=== PATIENT | male | born 1960 | race Caucasian/White ===

== ENCOUNTER 2016-10-17 14:37 | Emergency (ER) | payer OTHER ==
[~2016-10-17] VITALS: Ht 175.3 cm; Wt 77.8 kg
[~2016-10-17 14:37] MED LIST: DOXY100T OR; PRED20 PO; VENTAER INH; Z.0.NO CURRENT MEDS
[2016-10-17 14:46] VITALS: BP 147/95; PULSE 70; RESP 16; TEMP 98.3; O2SAT 97
[2016-10-17] MEDS ORDERED: IBUP400T20 PO (15:05)
[2016-10-17] MEDS ORDERED: SODIUM CHLOR 0.9% 1000 ML INJ 1,000 ML IV SCH (15:24)
[2016-10-17] MEDS ORDERED: MORPHINE SULFATE 4 MG/ML INJ IV PUSH ONE (15:30)
[2016-10-17] MEDS ORDERED: ONDANSETRON HCL 4 MG/2 ML VIAL IVP ONE (15:30)
[2016-10-17] MEDS ORDERED: SODIUM CHLORIDE 0.9% FLUSH 5 ML FLUSH IVF PRN (15:30)
--- NOTE | 2016-10-17 15:36 | PD ---
HPI Chief Complaint: Flank/Kidney Pain Time Seen by Provider: 14:54 Travel History International Travel<30 days: No Contact w/Intl Traveler<30days: No Traveled to known affect area: No History of Present Illness HPI So 56 year-old man who presents to the emergency department complaining of right sided thoracoabdominal pain radiating up into the chest and back into the flank ongoing for the past 5 days. This is associated with several weeks to a couple months worth of long-standing symptoms including foul-smelling urine for couple months, several episodes of blood in his semen a couple weeks ago, decreased strength of urinary stream. He also some occasional burning with urination. He also has had some diarrhea over the past week or so since been dark in color. He's also had 3 months of cough and congestion symptoms. Pains been going on for the past week or so, fairly constant, not affected by eating. His appetite been generally strong. He's had fevers and chills along with it. Today at work she had worsening of the pain, and an episode of lightheadedness and dizziness when he stumbled and something which pushing the coming in the emergency department today. He has not seen a doctor for this symptoms previously. He otherwise had been feeling generally well. History Past Medical History Medical History: Denies Significant Hx Tetanus Vaccination: < 5 Years Influenza Vaccination: No Past Surgical History Surgical History: No Previous Surgery Social History Alcohol Use: Yes (12 BEERS/WEEK) Tobacco Use: Yes (08/19 PPD) Allergies-Medications (Allergen,Severity, Reaction): Coded Allergies: Amoxil (Verified Allergy, Severe, UNKNOWN, 10/17/16) Augmentin (Verified Allergy, Severe, UNKNOWN, 10/17/16) Penicillin (Verified Allergy, Intermediate, GI UPSET, 10/17/16) Aspirin (Verified Allergy, Mild, 10/17/16) Common Ragweed (Verified Allergy, Mild, 10/17/16) Sulfa (Verified Adverse Reaction, Severe, N/V, 10/17/16) Uncoded Allergies: NICOTINE PATCH (Adverse Reaction, Severe, CHEST PAIN, PERIPHERAL NUMBNESS, PER PT, 10/17/16) Reported Meds & Prescriptions Reported Meds & Active Scripts Active Reported Ibuprofen 400 Mg Tab 400 Mg PO Q8H PRN Review of Systems Except as stated in HPI: all other systems reviewed are Neg Physical Exam Narrative GENERAL: 56 year-old man, appears uncomfortable, clutching his right abdomen, no acute distress. SKIN: Warm and dry. NECK: Trachea midline. No JVD. CARDIOVASCULAR: Regular rate and rhythm. No murmur appreciated. RESPIRATORY: No accessory muscle use. Clear to auscultation. Breath sounds equal bilaterally. GASTROINTESTINAL: Normal contour and appearance. Moderate right costal margin tenderness and allodynia, there is also some right upper quadrant tenderness. Negative Palmer's. No voluntary guarding. Abdomen otherwise unremarkable. No CVA tenderness to percussion. MUSCULOSKELETAL: No obvious deformities. No clubbing. No cyanosis. No edema. NEUROLOGICAL: Awake and alert. No obvious cranial nerve deficits. Motor grossly within normal limits. Normal speech. PSYCHIATRIC: Appropriate mood and affect; insight and judgment normal. Data Data Last Documented VS Vital Signs Date Time Temp Pulse Resp B/P Pulse Ox O2 Delivery O2 Flow Rate FiO2 10/17/16 16:08 72 16 149/81 98 Room Air 10/17/16 14:46 98.3 Orders Complete Blood Count With Diff (10/17/16 15:24) Comprehensive Metabolic Panel (10/17/16 15:24) Lipase (10/17/16 15:24) Urinalysis - C+S If Indicated (10/17/16 15:24) Iv Access Insert/Monitor (10/17/16 15:24) Ecg Monitoring (10/17/16 15:24) Oximetry (10/17/16 15:24) Morphine Inj (Morphine Inj) (10/17/16 15:30) Ondansetron Inj (Zofran Inj) (10/17/16 15:30) Sodium Chlor 0.9% 1000 Ml Inj (Ns 1000 M (10/17/16 15:24) Sodium Chloride 0.9% Flush (Ns Flush) (10/17/16 15:30) Chest, Single Ap (10/17/16 15:24) Ed Poc Ultrasound (10/17/16 15:24) Ct Abd/Pel W Iv Contrast(Rout) (10/17/16 ) Us Abdomen Gallbladder (10/17/16 ) Iohexol 350 Inj (Omnipaque 350 Inj) (10/17/16 16:49) Labs Laboratory Tests Test 10/17/16 15:35 White Blood Count 4.3 TH/MM3 Red Blood Count 4.39 MIL/MM3 Hemoglobin 13.9 GM/DL Hematocrit 40.5 % Mean Corpuscular Volume 92.3 FL Mean Corpuscular Hemoglobin 31.6 PG Mean Corpuscular Hemoglobin 34.2 % Concent Red Cell Distribution Width 12.8 % Platelet Count 203 TH/MM3 Mean Platelet Volume 8.1 FL Neutrophils (%) (Auto) 59.6 % Lymphocytes (%) (Auto) 30.9 % Monocytes (%) (Auto) 6.0 % Eosinophils (%) (Auto) 2.7 % Basophils (%) (Auto) 0.8 % Neutrophils # (Auto) 2.6 TH/MM3 Lymphocytes # (Auto) 1.3 TH/MM3 Monocytes # (Auto) 0.3 TH/MM3 Eosinophils # (Auto) 0.1 TH/MM3 Basophils # (Auto) 0.0 TH/MM3 CBC Comment DIFF FINAL Differential Comment Urine Color YELLOW Urine Turbidity CLEAR Urine pH 6.0 Urine Specific [place] 1.024 Urine Protein NEG mg/dL Urine Glucose (UA) NEG mg/dL Urine Ketones NEG mg/dL Urine Occult Blood NEG Urine Nitrite NEG Urine Bilirubin NEG Urine Leukocyte Esterase NEG Urine RBC 0-3 /hpf Urine WBC 0-2 /hpf Urine Squamous Epithelial 0-5 /hpf Cells Microscopic Urinalysis Comment CULT NOT INDICATED Sodium Level 142 MEQ/L Potassium Level 3.6 MEQ/L Chloride Level 108 MEQ/L Carbon Dioxide Level 27.4 MEQ/L Anion Gap 7 MEQ/L Blood Urea Nitrogen 14 MG/DL Creatinine 0.82 MG/DL Estimat Glomerular Filtration 97 ML/MIN Rate Random Glucose 107 MG/DL Calcium Level 8.3 MG/DL Total Bilirubin 0.6 MG/DL Aspartate Amino Transf 19 U/L (AST/SGOT) Alanine Aminotransferase 30 U/L (ALT/SGPT) Alkaline Phosphatase 72 U/L Total Protein 7.1 GM/DL Albumin 3.8 GM/DL Lipase 560 U/L [facility] Medical Decision Making Medical Screen Exam Complete: Yes Emergency Medical Condition: Yes Interpretation(s) LABS: CBC unremarkable CMP is unremarkable Lipase 560 UA unremarkable Chest x-ray: Negative. CT abdomen and pelvis: Normal examination other than degenerative this disease lower lumbar sacral junction within the SI joints. Right upper quadrant ultrasound: Negative Differential Diagnosis Hepatobiliary disease, shingles, mass, malignancy, renal lithiasis, pyelonephritis, other Narrative Course Medical decision making INITIAL: 56 year-old man with right costal margin pain for a week, multiple associated symptoms, urinary symptoms for several months, and diarrhea for a week or so, some fevers and chills. Possibly urinary symptoms like how and nephritis or renal lithiasis. Possible underlying malignancy. No weight loss. No definite night sweats but he has had these fevers chills. We'll check point of care ultrasound the gallbladder, CT for renal stone, chest x-ray, labs , urinalysis, reassess. FINAL: 56 year-old man, multiple complaints, no clear etiology. We'll need outpatient follow-up. No evidence of emergent disease. Recommend supportive treatment. Diagnosis Primary Impression: Right flank pain Additional Instructions: Follow-up with your primary doctor at the first available appointment. Return to the emergency department for any new or worsening symptoms. Take tramadol as prescribed as needed for pain. Med/Other Pt SpecificInfo: Prescription(s) given Scripts Tramadol 50 Mg Tab50 Mg PO Q8H PRN (PAIN) #14 TAB Ref 0 Prov:Rm Cisneros MD 10/17/16 Disposition: 01 DISCHARGE HOME Condition: Stable Rm Cisneros MD Oct 17, 2016 15:36
[2016-10-17 15:51] LABS: AUTOMATED NEUTROPHIL # 2.6 TH/MM3 (1.8-7.7); BASOPHIL % 0.8 % (0.0-2.0); EOSINOPHIL # 0.1 TH/MM3 (0-0.4); EOSINOPHIL % 2.7 % (0.0-4.0); HEMATOCRIT 40.5 % (39.0-51.0); HEMO FLAGS DIFF FINAL; LYMPH % 30.9 % (9.0-44.0); LYMPHOCYTE # 1.3 TH/MM3 (1.0-4.8); MEAN CELL VOLUME 92.3 FL (80.0-100.0); MEAN CORPUSCULAR HEMOGLOBIN 31.6 PG (27.0-34.0); MEAN CORPUSCULAR HGB CONC 34.2 % (32.0-36.0); NEUT % 59.6 % (16.0-70.0); PLATELET COUNT 203 TH/MM3 (150-450); RED BLOOD COUNT 4.39 MIL/MM3 (4.50-5.90); RED CELL DISTRIBUTION WIDTH 12.8 % (11.6-17.2); WHITE BLOOD COUNT 4.3 TH/MM3 (4.0-11.0)
[2016-10-17 15:59] LABS: CHLORIDE 108 MEQ/L (98-107); POTASSIUM 3.6 MEQ/L (3.5-5.1); SODIUM (NA) 142 MEQ/L (136-145)
[2016-10-17 16:03] LABS: ANION GAP 7 MEQ/L (5-15); BICARBONATE 27.4 MEQ/L (21.0-32.0); BLOOD UREA NITROGEN 14 MG/DL (7-18)
[2016-10-17 16:06] LABS: ALT (GPT) 30 U/L (12-78); AST (GOT) 19 U/L (15-37); GLOMERULAR FILTRATION RATE 97 ML/MIN (>89)
[2016-10-17 16:07] LABS: TOTAL BILIRUBIN ADULT 0.6 MG/DL (0.2-1.0)
[2016-10-17 16:08] VITALS: BP 149/81; PULSE 72; RESP 16; O2SAT 98
[2016-10-17 16:08] LABS: BLOOD, URINE NEG (NEG); GLUCOSE,URINE NEG (NEG); KETONE, URINE NEG (NEG); NITRITE,URINE NEG (NEG)
[2016-10-17 16:10] LABS: ALKALINE PHOSPHATASE 72 U/L (45-117)
[2016-10-17 16:29] LABS: URINE COLOR YELLOW (YELLW/STRAW)
[2016-10-17 16:33] LABS: COMMENT (UR) CULT NOT INDICATED; CULTURE IF INDICATED CULT NOT INDICATED; RBC, URINE 0-3 /hpf (0-3); SQUAMOUS EPITHELIAL CELL URINE 0-5 /hpf (0-5); WBC, URINE 0-2 /hpf (0-5)
--- NOTE | 2016-10-17 16:46 | RADHPO ---
EXAM DATE/TIME: 10/17/2016 16:17 [facility] COMPARISON: CHEST SINGLE AP, November 22, 2011, 14:17. INDICATIONS : Chest pains. MEDICAL HISTORY : None. SURGICAL HISTORY : None. ENCOUNTER: Initial ACUITY: 2 weeks PAIN SCORE: 9/10 LOCATION: Right lower quadrant FINDINGS: A single view of the chest demonstrates the lungs to be symmetrically aerated without evidence of mas s, infiltrate or effusion. The cardiomediastinal contours are unremarkable. Osseous structures are intact. CONCLUSION: Normal examination. Rm Valadez MD on October 17, 2016 at 16:44 Board Certified Radiologist. This report was verified electronically.
[2016-10-17] MEDS ORDERED: IOHEXOL 350 MG/ML 10 ML VIAL (for RAD DIAG) IV ONE (16:49)
--- NOTE | 2016-10-17 16:55 | RADHPO ---
EXAM DATE/TIME: 10/17/2016 16:34 [facility] COMPARISON: No previous studies available for comparison. INDICATIONS : Right abdominal pain. IV CONTRAST: 100 cc Omnipaque 350 (iohexol) IV ORAL CONTRAST: No oral contrast ingested. RADIATION DOSE: 11.86 CTDIvol (mGy) MEDICAL HISTORY : None SURGICAL HISTORY : None. ENCOUNTER: Initial ACUITY: 4 - 6 days PAIN SCALE: 7/10 LOCATION: Right Abdomen. TECHNIQUE: Volumetric scanning of the abdomen and pelvis was performed. Using automated exposure control and ad justment of the mA and/or kV according to patient size, radiation dose was kept as low as reasonably achievable to obtain optimal diagnostic quality images. FINDINGS: LOWER LUNGS: The visualized lower lungs are clear. LIVER: Homogeneous density without lesion. There is no dilation of the biliary tree. No calcified gallston es. SPLEEN: Normal size without lesion. PANCREAS: Within normal limits. KIDNEYS: Normal in size and shape. There is no mass, stone or hydronephrosis. ADRENAL GLANDS: Within normal limits. VASCULAR: There is no aortic aneurysm. BOWEL/MESENTERY: The stomach, small bowel, and colon demonstrate no acute abnormality. There is no free intraperitone al air or fluid. ABDOMINAL WALL: Within normal limits. RETROPERITONEUM: There is no lymphadenopathy. BLADDER: No wall thickening or mass. REPRODUCTIVE: Within normal limits. INGUINAL: There is no lymphadenopathy or hernia. MUSCULOSKELETAL: Areas of sclerosis around the sacroiliac joints bilaterally. Marked discogenic sclerosis at the L5-S1 level with marked displaced narrowing. CONCLUSION: Normal examination other than degenerative disc disease lower lumbar sacral junction and within the s acroiliac joints. Rm Valadez MD on October 17, 2016 at 16:52 Board Certified Radiologist. This report was verified electronically.
[2016-10-17 17:10] VITALS: BP 145/81; PULSE 72; RESP 16; O2SAT 98
--- NOTE | 2016-10-17 17:10 | RADHPO ---
EXAM DATE/TIME: 10/17/2016 16:48 [facility] COMPARISON: CT ABDOMEN & PELVIS W CONTRAST, October 17, 2016, 16:34. INDICATIONS : Right upper quadrant and chest pain. MEDICAL HISTORY : Right upper quadrant and chest pain. SURGICAL HISTORY : None. ENCOUNTER: Initial ACUITY: 4-6 days PAIN SCORE: 6/10 LOCATION: Right upper quadrant MEASUREMENTS: LIVER: 20.6 cm length COMMON DUCT: 3 mm RIGHT KIDNEY: 10.7 x 6.9 x 4.7 cm FINDINGS: LIVER: Normal echotexture without focal lesion or ductal dilatation. COMMON DUCT: No intraluminal mass or stone visualized. GALLBLADDER: Contains no stones, demonstrates no wall thickening or pericholecystic fluid. PANCREAS: The visualized portions are within normal limits. RIGHT KIDNEY: No evidence of hydronephrosis, stone, or mass. CONCLUSION: Normal examination. Rm Valadez MD on October 17, 2016 at 17:07 Board Certified Radiologist. This report was verified electronically.
[2016-10-17] MEDS ORDERED: TRAM50TA PO (17:24)
== END 2016-10-17 17:58 | disposition home or self-care (01) ==
LOC: PHED 14:37
DX: R10.11 Right upper quadrant pain (principal); R07.9 Chest pain, unspecified; R19.7 Diarrhea, unspecified; R30.0 Dysuria; R05 Cough
CPT/HCPCS: 71010; 74177; 76705; 80053; 81001; 83690; 85025; 96361; 96374; 96375; 99284; J2270; J2405; J7030; Q9967